=== PATIENT | female | born 1950 | race Caucasian/White ===

== ENCOUNTER → 2016-05-25 | Outpatient (CLI) | payer MEDICARE, BC ==
[~2016-05-25] MED LIST: 3N1 COMMODE MC; ACET1TAB40 PO; ASPI-781 PO; CETI10CA PO; LEVO100T87 PO; WALK1EAC23 MC
--- NOTE | 2016-05-25 10:22 | RADRPT ---
PROCEDURE: XR Left Hip and pelvis. CLINICAL INDICATION: Left hip pain. Pelvic pain. Postop. TECHNIQUE: Three views. Frontal pelvis. Frontal and lateral left hip. COMPARISON: 11/20/2015. FINDINGS: There is no fracture or dislocation. The soft tissues are normal. 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 There are moderate degenerative changes of the right hip with joint space narrowing and osteophytes. There is no lytic or blastic lesion. The sacroiliac joints are unremarkable. IMPRESSION: 1. Satisfactory postoperative appearance of the left hip. 2. Moderate degenerative changes of the right hip. RPTAT: QQ .Ernesto Bell MD, MD Date Time Electronically viewed and signed by .Ernesto Bell MD, MD on 05/25/2016 10:22 .R/
== END | disposition home or self-care (01) ==
LOC: HKI 08:45
PROVIDERS: ATTEND Orthopaedic Surgery
DX: Z47.1 Aftercare following joint replacement surgery (principal); Z96.642 Presence of left artificial hip joint
CPT/HCPCS: 73502; G0463